=== PATIENT | male | born 1955 | race Caucasian/White ===

== ENCOUNTER 2019-06-22 14:21 | Emergency (ER) | payer OTHER ==
[~2019-06-22] VITALS: Wt 83.5 kg
[2019-06-22] MEDS ORDERED: NICARDipine HCL 30 MG CAPSULE PO ONE (17:00)
[2019-06-22 17:39] VITALS: BP 159/95; PULSE 69; RESP 17
== END 2019-06-22 17:58 | disposition home or self-care (01) ==
LOC: E/R 14:21
DX: I10 Essential (primary) hypertension (principal)
CPT/HCPCS: Z7502; Z7610; 99283